=== PATIENT | female | born 1995 | race Caucasian/White ===

== ENCOUNTER 2017-01-05 01:56 | Emergency (ER) | payer MEDICAID ==
--- NOTE | ~2017-01-05 | CR63 ---
[facility] A Service of [facility] & [facility] RADIOLOGY TEXT RESULTS PATIENT: PREMA QUINN LOCATION: [facility] : [birth year] UNIT #: [id number] AGE: [address]: Joe Sweeney MD SEX: F ORDER DR: [id number] [facility] [address] [place], [place] [address] [id number] MR#: [id number] Acc #: [id number] NAME: PREMA QUINN. : 1995 SEX: F STUDY DATE/TIME: 01/05/2017 4:00 UNIT: [facility] ROOM: STUDY DESCRIPTION: CR Chest 2 View Attending Physician: Joe Sweeney M.D. Ordering Physician: Joe Sweeney M.D. Primary Care Physician: No Primary Care Physician MEDICAL IMAGING REPORT This report is preliminary unless electronic signature is present EXAM Two-view chest INDICATIONS Recent childbirth. Bilateral chest pain for 4 days. COMPARISON PA and lateral views of the chest without comparison. FINDINGS Heart and mediastinal contours are normal. Lungs are clear. No pleural effusion. IMPRESSION Negative chest radiograph. Dictated by... Mathew Sethi M.D. THIS IS AN ELECTRONICALLY VERIFIED REPORT Mathew Sethi M.D. at 01/05/2017 10:28 PM Teresa TD: 01/05/2017 12:51 JOB #: [id number] MEDICAL IMAGING REPORT Page 1 of 1 COPY
[~2017-01-05 01:56] MED LIST: NO MEDICATIONS
[2017-01-05 04:52] LABS: BASOPHIL% 0.2 % (0-2.5); EOSINOPHIL# 0.2 X10e3 (0-0.7); EOSINOPHIL% 1.5 % (0.0-7.0); HEMATOCRIT 36.5 % (35.0-45.0); HEMOGLOBIN 11.8 gm/dL (12.0-16.0); LYMPHOCYTE# 2.5 X10e3 (1.0-3.5); LYMPHOCYTE% 19.5 % (17.0-45.0); MEAN CELL VOLUME 84.5 FL (83-96); MEAN CORPUSCULAR HEMOGLOBIN 27.3 PG (28-34); MEAN CORPUSCULAR HGB CONC 32.4 g/dL (30-36); MEAN PLATELET VOLUME 7.3 FL (6.5-11.5); MONOCYTE% 7.7 % (3.0-12.0); NEUTROPHIL% 71.1 % (40-75); PLATELET COUNT 320 X10e3 (140-420); RED BLOOD COUNT 4.33 X10e (3.90-5.30); RED CELL DISTRIBUTION WIDTH 13.9 % (11.0-15.5); WHITE BLOOD COUNT 12.6 X10e3 (4.0-10.5)
[2017-01-05 04:53] LABS: URINE SOURCE CLEAN CATCH
[2017-01-05 04:54] LABS: DIFF IND NO
[2017-01-05 04:54] LABS: CULTURE INDICATED? YES; URINE APPEARANCE CLOUDY; URINE BACTERIA AUWI 1+ (NEGATIVE); URINE BILIRUBIN NEG (NEG); URINE BLOOD TRACE (NEG); URINE COLOR YELLOW; URINE GLUCOSE NEG (NEG); URINE KETONE TRACE (NEG); URINE LEUKOCYTE ESTERASE 3+ (NEG); URINE NITRATE NEG (NEG); URINE PROTEIN NEG (NEG); URINE SPECIFIC GRAVITY 1.014 (1.003-1.035); URINE SQUAMOUS EPITHELIAL CELL OCC /[HPF]; UWBCS1 AUWI 50-100 (0-5)
[2017-01-05 05:24] LABS: ALBUMIN SERUM 3.8 g/dL (3.5-5.0); BILIRUBIN, DIRECT 0.1 mg/dL (0.0-0.2); BILIRUBIN,INDIRECT 0.4 mg/dL (0.0-0.9); BILIRUBIN,TOTAL 0.5 mg/dL (0.2-2.0); CALCIUM SERUM 8.9 mg/dL (8.4-10.2); CREATININE SERUM 0.6 mg/dL (0.6-1.4); GLOM FILT RATE Estimated 132.1 mL/min (>60); POTASSIUM 3.7 mmol/L (3.5-5.1); PROTEIN TOTAL SERUM 7.1 g/dL (6.0-8.3)
== END 2017-01-05 05:58 | disposition home or self-care (01) ==
LOC: CED 01:56
PROVIDERS: Emergency Medicine
DX: N10 Acute pyelonephritis (principal); F17.200 Nicotine dependence, unspecified, uncomplicated
CPT/HCPCS: 36415; 71020; 80048; 80076; 81003; 82150; 83690; 84703; 85025; 87086; 96374; 96375; 96376; 99284; J0696; J2270